=== PATIENT | male | born 1960 | race Caucasian/White ===

== ENCOUNTER 2023-10-12 14:53 | Emergency (ER) | payer OTHER ==
[~2023-10-12] VITALS: Ht 172.7 cm; Wt 77.1 kg
[2023-10-12 14:59] VITALS: BP_SYST 118; PULSE 88; RESP 18; TEMP 100.1; O2SAT 98
[2023-10-12] MEDS ORDERED: oxyCODONE HCL 5 MG TABLET PO ONE (16:15)
[2023-10-12 16:37] LABS: HEMATOCRIT 47.6 % (36-54); MEAN CORPUSCULAR HEMOGLOBIN 32 pg (27-31); MEAN CORPUSCULAR HGB CONC 34 % (32-36); MEAN CORPUSCULAR VOLUME 97 fL (79.0-98.0); PLATELET COUNT (AUTO) 273 K/uL (130-430); RED BLOOD CELL COUNT(AUTO) 4.93 MIL/uL (4.2-6.2); RED CELL DISTRIBUTION WIDTH 14.1 % (9.0-15.0); WHITE BLOOD COUNT (AUTO) 22.2 K/uL (4.8-10.8)
[2023-10-12 16:41] LABS: BILIRUBIN,URINE NEGATIVE (NEGATIVE); BLOOD, URINE NEGATIVE (NEGATIVE); COLOR,URINE YELLOW (YELLOW); GLUCOSE,URINE NEGATIVE (NEGATIVE); KETONES,URINE TRACE (NEGATIVE); LEUKOCYTE ESTERASE ,URINE NEGATIVE (NEGATIVE); NITRITE, URINE NEGATIVE (NEGATIVE); PROTEIN URINE 1+ (NEGATIVE); UROBILINOGEN,URINE 0.2 (0.2-1.0)
[2023-10-12] MEDS: ACETAMINOPHEN 500 MG TABLET PO ONE (16:52)
[2023-10-12] MEDS: HYDROcodone/ACETAMIN 10-325 MG TAB PO ONE (16:55)
[2023-10-12 17:05] LABS: ALBUMIN 4.1 g/dL (3.4-4.8); CALCIUM 9.7 mg/dL (8.4-11.0); CREATININE 1.51 mg/dL (0.55-1.30); POTASSIUM 3.9 mmol/L (3.5-5.1); TOTAL BILIRUBIN 0.9 mg/dL (0.0-1.0); TOTAL PROTEIN, SERUM 8.3 g/dL (6.4-8.3)
[2023-10-12] MEDS: NACL 0.9% 1,000 ML IV ONE ×2 (17:23→18:45)
[2023-10-12 17:25] LABS: CLARITY/URINE SLIGHTLY HAZY (CLEAR); RBC,URINE 0-3 /HPF (0-3)
[2023-10-12 17:26] LABS: BAND % (MANUAL) 14 % (0-6); BASOPHILS % (MANUAL) 0 % (0-2); EOSINOPHILS % (MANUAL) 0 % (0-7); LYMPHOCYTES % (MANUAL) 8 % (20-46); MONOCYTES % (MANUAL) 5 % (0-11); OVALOCYTES FEW; TEAR DROP CELLS FEW
[2023-10-12 17:26] LABS: BACTERIA,URINE FEW /HPF (None Seen); WBC,URINE 0-3 /HPF (0-3)
[2023-10-12] MEDS: VANCOMYCIN HCL 1,500 MG in NS 250 ML IV SCH (18:47)
[2023-10-12] MEDS: PIPERACILLIN/TAZO 4.5 GM in NS 100 ML IV ONE (21:08)
[2023-10-12] MEDS: CLINDAMYCIN 900 mg/50mL D5W 50 ML IV ONE (21:08)
[2023-10-12] MEDS: HYDROcodone/ACETAMIN 5-325 MG TAB (NORCO/ VICODIN) PO ONE (22:18)
[2023-10-12 22:23] VITALS: BP_SYST 119; PULSE 76; RESP 18; TEMP 98.4; O2SAT 94
== END 2023-10-12 21:08 | disposition short-term general hospital (02) ==
LOC: SED 14:53
DX: A41.9 Sepsis, unspecified organism (principal); L03.115 Cellulitis of right lower limb; Z20.822 Contact with and (suspected) exposure to COVID-19; Z88.6 Allergy status to analgesic agent
CPT/HCPCS: 99291; 96365; 93971; 96361; 96366; 87426; 85027; 80053; 81001; 85007; 87040; 36415; 71045; 73590; 83605; J3370; J7050; J7030; 81000; 81015